=== PATIENT | female | born 1950 | race Caucasian/White ===

== ENCOUNTER 2017-03-28 07:00 | Outpatient (RCR) | payer BC | END 2017-03-30 | LOC: PT 07:00 | PROVIDERS: ATTEND Orthopaedic Surgery | DX: M25.471 Effusion, right ankle (principal); M25.671 Stiffness of right ankle, not elsewhere classified; M62.81 Muscle weakness (generalized); R26.9 Unspecified abnormalities of gait and mobility ==

== ENCOUNTER 2017-04-28 07:00 | Outpatient (RCR) | payer BC, MEDICARE | END 2017-04-30 | LOC: PT 07:00 | PROVIDERS: ATTEND Orthopaedic Surgery | DX: S86.011A Strain of right Achilles tendon, initial encounter (principal); M25.471 Effusion, right ankle; M25.671 Stiffness of right ankle, not elsewhere classified; R26.9 Unspecified abnormalities of gait and mobility; M62.81 Muscle weakness (generalized) ==

== ENCOUNTER 2017-05-12 07:00 | Outpatient (RCR) | payer BC, MEDICARE | END 2017-05-28 | LOC: PT 07:00 | PROVIDERS: ATTEND Orthopaedic Surgery | DX: S86.011A Strain of right Achilles tendon, initial encounter (principal); M25.571 Pain in right ankle and joints of right foot; M25.471 Effusion, right ankle; M25.671 Stiffness of right ankle, not elsewhere classified; R26.9 Unspecified abnormalities of gait and mobility; M62.81 Muscle weakness (generalized) ==